=== PATIENT | female | born 1965 | race Caucasian/White ===

== ENCOUNTER 2017-02-06 16:14 | Emergency (ER) | payer BC ==
[2017-02-06 16:18] VITALS: BP 155/81; PULSE 80; TEMP 98.2; BMI 33.6
--- NOTE | 2017-02-06 18:03 | PDOC ---
History of Present Illness - General Chief Complaint: Injury Stated Complaint: FALL INJURY Time Seen by Provider: 02/06/17 17:36 History Source: Patient Exam Limitations: No Limitations - History of Present Illness Initial Comments: 02/06/17 18:03 My chief complaint: Left shoulder upper arm, left lateral chest wall discomfort after falling this morning History of present illness: Patient is a 51-year-old female with a history of shv-ldwwsje-ueohrikdd diabetes, hyperlipidemia here today after she fell on a sidewalk this morning losing her balance tripping on something on the sidewalk causing her to fall forward with both wrists stretched out in front of her however more on left side. Patient denies hitting her head. Patient reports feeling discomfort to her left shoulder or left upper arm and minimally left elbow since this occurred. Patient also sustained a superficial abrasion to left elbow right knee, and left anterior lower leg. She reports that she took ibuprofen this morning and around 4:30 this afternoon. She denies any neck pain back pain or bilateral knee pain. Pt denies being on anticoagulants. Pt. is rt. hand dominant. 02/06/17 18:12 02/06/17 18:18 02/06/17 19:26 Occurred: reports: this morning Severity: reports: moderate (LEFT SHOULDER, LEFT UPPER ARM, LEFT ELBOW, left lateral chest wall discomfort ) Pain Location: reports: upper extremity (LEFT SHOULDER, LEFT UPPER ARM, LEFT ELBOW PAIN ) Method of Injury: Yes: fall Modifying Factors: improves with: immobilization, pain medication (IBUPROFEN LAST TAKEN AT 4: 30 PM TODSAY ) Loss of Consciousness: no loss of consciousness Associated Symptoms (Fall): denies symptoms Past History - Past Medical History Allergies/Adverse Reactions: Allergies Allergy/AdvReac Type Severity Reaction Status Date / Time No Known Drug Allergies Allergy Verified 02/06/17 16:18 Home Medications: Ambulatory Orders No Home Medications 0 dose .ROUTE UTDICT 09/02/13 Anemia: No Asthma: No Cancer: No Cardiac Disorders: No CVA: No COPD: No CHF: No Dementia: No Diabetes: Yes GI Disorders: No Disorders: No HTN: No Hypercholesterolemia: Yes Liver Disease: No Seizures: No Thyroid Disease: No - Surgical History Orthopedic Surgery: No - Psycho/Social/Smoking Cessation Hx Suicidal Ideation: No Smoking History: Current every day smoker Have you smoked in the past 12 months: Yes Number of Cigarettes Smoked Daily: 10 Information on smoking cessation initiated: Yes 'Breaking Loose' booklet given: 02/06/17 Hx Alcohol Use: No Drug/Substance Use Hx: No Substance Use Type: None Hx Substance Use Treatment: No Review of Systems - Review of Systems Able to Perform ROS?: Yes Constitutional: No: Symptoms Reported HEENTM: No: Symptoms Reported Respiratory: No: Symptoms reported Cardiac (ROS): No: Symptoms Reported ABD/GI: No: Symptoms Reported : No: Symptoms Reported Musculoskeletal: Yes: Joint Pain (left shoulder, left upper arm, left elbow ), Muscle Pain (left lateral chest wall tenderness minimal ) Integumentary: Yes: Other (abrasion left elbow, rt. knee abrasion, left lower anterior leg abrasion superfical ) Neurological: No: Symptoms reported *Physical Exam - Vital Signs Last Vital Signs Temp Pulse Resp BP Pulse Ox 98.2 F 80 17 155/81 100 02/06/17 16:16 02/06/17 16:16 02/06/17 16:16 02/06/17 16:16 02/06/17 16:16 - Physical Exam General Appearance: Yes: Appropriately Dressed Neck: negative: Tender, Lymphadenopathy (R), Lymphadenopathy (L), Rigidity, Tender lateral, Tender midline Respiratory/Chest: positive: Chest Tender (minimal left lateral chest wall tenderness superficially ), Lungs Clear, Normal Breath Sounds. negative: Respiratory Distress Cardiovascular: positive: Regular Rhythm, Regular Rate, S1, S2 Musculoskeletal: positive: Normal Inspection. negative: CVA Tenderness, CVA Tenderness (R), CVA Tenderness (L), Decreased Range of Motion, Vertebral Tenderness Extremity: positive: Normal Capillary Refill, Normal Inspection, Normal Range of Motion (left shoulder, left elbow, left wrist, all digits on left hand ), Tender (left shoulder, left upper arm, left elbow minimally ). negative: Swelling Integumentary: positive: Other (abrasion superfical left elbow dime size, rt. knee supeficial abrasion dime size, left lower anterior leg superfical ) Neurologic: positive: Fully Oriented, Alert, Normal Response, Motor Strength 5/ 5 (upper and lower extremities ), Respond to painful stimul, Responsive. negative: Numbness, Sensory Deficit (legs and arms ) Deep Tendon Reflexes: Knee (L): 4+, Knee (R): 4+ Medical Decision Making - Medical Decision Making 02/06/17 18:18 02/06/17 18:18 Patient is a 51-year-old female with a history of [id number] diabetes , hyperlipidemia here today after she fell on a sidewalk this morning losing her balance tripping on something on the sidewalk causing her to fall forward with both wrists stretched out in front of her however more on left side. Patient denies hitting her head. Patient reports feeling discomfort to her left shoulder or left upper arm and minimally left elbow since this occurred. Patient also sustained a superficial abrasion to left elbow right knee, and left anterior lower leg. She reports that she took ibuprofen this morning and around 4:30 this afternoon. She denies any neck pain back pain or bilateral knee pain. Pt denies being on anticoagulants. Pt. did not hit her head, no LOC. Pt. does not want anything for pain presently Left shoulder pain r/o fracture left upper arm pain r/o fracture chest wall discomfort abrasions left elbow, rt. knee, left anterior lower leg PLAN: xray left shoulder calcifi tendonitis of supraspinatous tendon per Dr. Newman no dislocation or fracture noted xray left humerous calcifi tendonitis of supraspinatous tendonm no dislocation or fracture noted per Dr. Newman follow up with ortho 02/06/17 19:23 02/06/17 19:38 *DC/Admit/Observation/Transfer Diagnosis at time of Disposition: Abrasions of multiple sites, Chest wall deformity Fall Qualifiers: Encounter type: initial encounter Qualified Code(s): W19.XXXA - Unspecified fall, initial encounter Acute shoulder pain due to trauma Qualifiers: Laterality: left Qualified Code(s): M25.512 - Pain in left shoulder Muscle strain of left upper arm Qualifiers: Encounter type: initial encounter Qualified Code(s): S46.912A - Strain of unspecified muscle, fascia and tendon at shoulder and upper arm level, left arm , initial encounter - Discharge Dispostion Disposition: HOME Condition at time of disposition: Stable - Referrals Referrals: STAFF,NOT ON [Primary Care Provider] - Jason Goff MD [Staff Physician] - - Patient Instructions Additional Instructions: Cleanse abrasions with antibacterial soap and water pat dry and apply bacitracin ointment twice daily cover with Band-Aid when out of home let air out at night Follow-up with orthopedist next week if pain continues Return to emergency room if symptoms worsen or any new symptoms develop Take ibuprofen as needed as directed by chef french for pain Patient voiced understanding of discharge instructions and all questions were answered - Post Discharge Activity
== END 2017-02-06 19:48 | disposition home or self-care (01) ==
LOC: JERFT 16:14
DX: S46.812A Strain of other muscles, fascia and tendons at shoulder and upper arm level, left arm, initial encounter (principal); S50.312A Abrasion of left elbow, initial encounter; S80.211A Abrasion, right knee, initial encounter; W18.39XA Other fall on same level, initial encounter; Y93.01 Activity, walking, marching and hiking; Y92.480 Sidewalk as the place of occurrence of the external cause; E11.9 Type 2 diabetes mellitus without complications; Z79.84 Long term (current) use of oral hypoglycemic drugs
CPT/HCPCS: 73030-TC-LT; 73060-TC-LT; 73070-TC-LT; 99281-25